=== PATIENT | female | born 1970 | race Caucasian/White ===

== ENCOUNTER 2016-11-14 11:02 | Emergency (ER) | payer MEDICARE, MEDICAID ==
[~2016-11-14] VITALS: Ht 162.6 cm; Wt 190.5 kg
[~2016-11-14 11:02] MED LIST: AGGRENOX (D1 CAPSULE PO; ALESSE PO; AMLO5TAB PO; ASPIRIN 81MG TA81 MG PO; ASPIRIN CHILDRE81 MG PO; ATORVASTATIN CA20 M1 PO; B COMPLEX1 TA3 PO; BACTROBAN2% TP; CITALOPRAM10 MG PO; CITALOPRAM40 MG PO; CLARITIN 10MG T10 MG PO; CLARITIN REDITA10 MG PO; CLOPIDOGREL75 M2 PO; CYCLOBENZ5 MG PO; CYCLOBENZAPRINE10 M1 PO; DICLOFENAC 50MG50 MG PO; FLEXERIL10 MG PO; FLONASE 50 MCG16 GM; FUROSEMIDE 20MG20 MG FT; GABAPENTIN300 MG PO; HYDROCHLOROTHIA25 M1 PO; INDERAL 80MG. T80 MG PO; JANUVIA100 MG PO; KEFLEX 500MG.500 MG PO; LANTUS INS100 UNITS/ SC; LASIX20 MG PO; LEVOTHYROXIN0.025 M1 PO; LISINOPRIL 10MG10 MG PO; LISINOPRIL 20MG20 MG PO; LORTAB 5/500 501 TAB PO; LORTAB 500 MG-71 TAB PO; METFORMIN1000 MG PO; MINOCIN100 MG PO; MONTELUKAST SOD10 MG PO; NAPROSYN 375MG375 MG PO; NEURONTIN 100100 MG PO; NEURONTIN400 MG PO; NOVOLIN 70/30 710 ML SC; NOVOLOG MIX 70/10 ML SC; OMEPRAZOLE40 MG PO; PRAVASTATIN 40M40 MG PO; PRILOSEC40 MG PO; PROAIR HFA0.09 MG/AC IH; PROVERA10 MG OR; SEPTRA DS 800 M1 TAB PO; SIMVASTATIN40 MG PO; SYMBICORT1 AE1 IH; TRAMADOL 50MG T50 M1 PO; TYLENOL W/CODEI1 TA2 PO; ULTRAM 50 MG TA50 MG PO; VISTARIL25 MG PO; WARFARIN SODIUM10 M1 PO
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
[2016-11-14 12:08] VITALS: BP 158/86
[2017-02-13] MEDS ORDERED: MOTRIN 400MG.400 MG PO (18:44)
== END 2016-11-14 12:08 | disposition home or self-care (01) ==
LOC: ER 11:02
DX: S63.501A Unspecified sprain of right wrist, initial encounter (principal); W19.XXXA Unspecified fall, initial encounter; Y92.009 Unspecified place in unspecified non-institutional (private) residence as the place of occurrence of the external cause; E11.9 Type 2 diabetes mellitus without complications; Z79.4 Long term (current) use of insulin; I10 Essential (primary) hypertension

== ENCOUNTER 2017-02-26 14:51 | Outpatient (CLI) | payer MEDICARE, MEDICAID ==
[~2017-02-26 14:51] MED LIST changes: +MOTRIN 400MG.400 MG PO
== END 2017-02-26 16:21 ==
LOC: LAB 14:51 → ACC 14:51
DX: I26.99 Other pulmonary embolism without acute cor pulmonale (principal); Z79.01 Long term (current) use of anticoagulants; Z51.81 Encounter for therapeutic drug level monitoring
CPT/HCPCS: G0463

== ENCOUNTER 2017-06-29 13:01 | Outpatient (CLI) | payer MEDICARE, MEDICAID ==
[~2017-06-29 13:01] MED LIST changes: +B COMPLEX1 EACH PO; +MULTI-DAY VITA1 EACH PO; +NATURE'S BLEND500 MG PO; +PROTONIX 40MG T40 MG PO; +RELION NOVOL100 U/M1 IJ; +TOUJEO300 U/ML SC; +VITAMIN C500 M1 PO; +VITAMIN D400 I1 PO
== END 2017-06-29 13:43 ==
LOC: ACC 13:01
DX: I26.99 Other pulmonary embolism without acute cor pulmonale (principal); Z79.01 Long term (current) use of anticoagulants; Z51.81 Encounter for therapeutic drug level monitoring
CPT/HCPCS: G0463

== ENCOUNTER 2017-08-12 21:32 | Emergency (ER) | payer MEDICARE, MEDICAID ==
[~2017-08-12] VITALS: Ht 162.6 cm; Wt 158.8 kg
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
[2017-08-12 22:40] VITALS: BP 118/70
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
--- OUTSIDE RECORDS SUMMARY | 2017-08-23 01:42 | External Medical Summary Rpt | CCD ---
Author Author , FELIPE WANG Address Unknown Phone [email or web address] Providers Care Sole Rounder Name Role Phone Katty Rodríguez MD, Unavailable Unavailable Katty Jackson MD, Unavailable Unavailable Neil Jackson MD Purpose Continuity of Care Document - 10-08-2013 through 2016 Problems Code Diagnosis DOS Provider Status 356.9 356.9 IDIO 12-03-2013 [facility] NEURPTHY Hospital NOS 704.8 704.8 HAIR 12-03-2013 [place] DISEASES [facility] 250.03 250.03 DIAB 11-28-2013 [facility], TYPE Hospital I [JUVENILE TYPE], UNCONTROLLE D 346.90 346.90 11-28-2013 [place] MIGRAINE [facility] UNSPECIFIED Hospital W/O INTRACT MGRN W/O STATUS MIGRAINOSUS 401.9 401.9 11-28-2013 [place] HYPERTENSIO [facility] N [facility] 413.9 413.9 11-28-2013 [place] ANGINA [facility] PECTORIS Hospital NEC/NOS V14.8 V14.8 11-28-2013 [place] HX-DRUG [facility] ALLERGY [facility] 693.0 693.0 DRUG 10-08-2013 [place] DERMATITIS [facility] E849.0 E849.0 10-08-2013 [place] ACCIDENT IN [facility] E931.9 E931.9 ADV 10-08-2013 [place] EFF [facility] ANTINT [facility] NEC/NOS Allergies, Adverse Reactions, Alerts Type Drug Allergy Adverse Reaction to Substance Substance Reaction Severity Trimethoprim I-ITCHING Unknown Sulfamethoxazole I-ITCHING Unknown Norgestrel Unknown Unknown Ethinyl Estradiol I-RASH Unknown Medications Na ND Rx Da Fi Fi Am Da Di Ph RX Ph St me C No te ll ll ou ys ag ar # ys at rm s nt no ma ic us Or Da si cy ia de te s n re d CE 62 01 0 No PH 75 -2 AL 60 2- Lo EX 29 20 ng IN 48 14 er 8 50 Ac 0 ti MG ve CA PS UL E SO 00 01 0 No DI 40 -1 UM 97 7- Lo 98 20 ng CH 30 14 er LO 9 RI Ac DE ti ve 0. 9% SO NIKUNJ TI ON Sa 63 01 0 No li 80 -1 ne 70 7- Lo 10 20 ng Fl 07 14 er us 5 h Ac 10 ti ML ve Sy ri ng e KE 00 01 0 No TO 40 -1 RO 93 7- Lo LA 79 20 ng C 50 14 er 30 1 Ac MG ti /M ve L AL De 00 01 0 No xa 51 -1 me 74 7- Lo th 90 20 ng as 12 14 er on 5 e Ac 4M ti G/ ve Ml Sd v DI 00 01 0 No PH 40 -1 EN 92 7- Lo HY [address] 03 14 er AM 1 IN Ac E ti 50 ve MG /M L SY RN G ME 00 01 0 No TO 40 -1 CL 93 7- Lo OP 41 20 ng RA 40 14 er AL 1 DE Ac ti 10 ve MG /2 ML AL Sa 63 01 0 No li 80 -1 ne 70 7- Lo 10 20 ng Fl 07 14 er us 5 h Ac 10 ti ML ve Sy ri ng e HY [address] 51 -2 OX 75 7- Lo YZ 60 20 ng IN 12 13 er E 5 50 Ac ti MG ve /M L AL De 00 11 0 No xa 51 -2 me 74 7- Lo th 90 20 ng as 12 13 er on 5 e Ac 4M ti G/ ve Ml Sd v Vital Signs 12-03-2013 20:38 Name Value Interpretat Reference Comment ion Range BP 75 mm[Hg] Diastolic BP Systolic 135 mm[Hg] Heart 105 /min Rate/Pulse O2% 96 % Respiratory 20 /min Rate 12-03-2013 19:33 Name Value Interpretat Reference Comment ion Range BP 63 mm[Hg] Diastolic BP Systolic 113 mm[Hg] Heart 107 /min Rate/Pulse O2% 99 % Respiratory 20 /min Rate 11-28-2013 23:13 Name Value Interpretat Reference Comment ion Range BP 80 mm[Hg] Diastolic BP Systolic 120 mm[Hg] Heart 85 /min Rate/Pulse O2% 100 % Respiratory 20 /min Rate 11-28-2013 21:01 Name Value Interpretat Reference Comment ion Range BP 84 mm[Hg] Diastolic BP Systolic 135 mm[Hg] Heart 99 /min Rate/Pulse O2% 100 % Respiratory 20 /min Rate 10-08-2013 06:46 Name Value Interpretat Reference Comment ion Range Body 98.0 [degF] Temperature BP 57 mm[Hg] Diastolic BP Systolic 115 mm[Hg] Heart 102 /min Rate/Pulse O2% 97 % Respiratory 18 /min Rate 10-08-2013 05:54 Name Value Interpretat Reference Comment ion Range BP 78 mm[Hg] Diastolic BP Systolic 146 mm[Hg] Heart 74 /min Rate/Pulse O2% 96 % Respiratory 20 /min Rate Results Labs Lab Lab Date Result Refere Interp Status Commen Order Detail nces retati t Range on Hemoglobin A1c in Blood (05-04-2017 11:27) Hemoglo 8.1 % 0.0% High complet bin A1c 017 - ed in 11:27 7.0% Blood Bas Metab 1999 Pnl SerPl (11-10-2016 16:47) Comment: Meter: [id number] Top Lift Cutter: [id number] Cresencio Yates Glucose 263 70-130 complet BldC 016 mg/dL ed Glucomt 16:47 r-mCnc Bas Metab 1999 Pnl SerPl (11-10-2016 11:38) Comment: Meter: [id number] Top Lift Cutter: [id number] Gee Brink Glucose 267 70-130 complet BldC 016 mg/dL ed Glucomt 11:38 r-mCnc Bas Metab 1999 Pnl SerPl (11-10-2016 07:15) Comment: Meter: [id number] Top Lift Cutter: [id number] Gee Brink Glucose 268 70-130 complet BldC 016 mg/dL ed Glucomt 07:15 r-mCnc Bas Metab 1999 Pnl SerPl (11-10-2016 05:46) Comment: Meter: [id number] Top Lift Cutter: [id number] Jose Luis Loaiza Glucose 300 70-130 complet BldC 016 mg/dL ed Glucomt 05:46 r-mCnc CBC W Diff pnl,unspecified Bld (11-10-2016 03:48) Basophi 0.01 0.00-0. complet ls # 016 10*3/mm 20 ed Bld 03:48 3 Auto Eosinop 12-30-2 0.00 0.10-0. complet hil # 016 10*3/mm 30 ed Bld 03:48 3 Auto Monocyt 12-30-2 0.55 0.00-1. complet es # 016 10*3/mm 00 ed Bld 03:48 3 Auto Lymphoc 12-30-2 1.23 0.60-4. complet ytes # 016 10*3/mm 80 ed Bld 03:48 3 Auto Neutrop 12-30-2 13.97 1.50-8. complet hils # 016 10*3/mm 30 ed Bld 03:48 3 Auto Imm 12-30-2 1.4 % 0.0-0.6 complet Granulo 016 ed cytes 03:48 NFr Bld Basophi 12-30-2 0.1 % 0.0-1.0 complet ls NFr 016 ed Bld 03:48 Auto Eosinop 12-30-2 0.0 % 0.0-3.0 complet hil NFr 016 ed Bld 03:48 Auto Monocyt 12-30-2 3.4 % 0.0-12. complet es NFr 016 0 ed Bld 03:48 Auto Lymphoc 12-30-2 7.7 % 24.0-44 complet ytes 016 .0 ed NFr Bld 03:48 Auto Neutrop 12-30-2 87.4 % 41.0-71 complet hils 016 .0 ed NFr Bld 03:48 Auto Platele 12-30-2 270 150-450 complet t # Bld 016 10*3/mm ed Auto 03:48 3 PMV Bld 12-30-2 9.4 fL 6.0-12. complet Auto 016 0 ed 03:48 RDW RBC 12-30-2 53.4 fl 37.0-54 complet Auto 016 .0 ed 03:48 RDW RBC 12-30-2 17.6 % 11.3-14 complet 016 .5 ed Auto-Rt 03:48 o MCHC 12-30-2 31.9 32.0-36 complet RBC 016 g/dL .0 ed Auto-mC 03:48 nc MCH RBC 12-30-2 26.5 pg 27.0-31 complet Qn 016 .0 ed Auto 03:48 MCV RBC 30-2 83.2 fL 80.0-99 complet Auto 016 .0 ed 03:48 Hct VFr 30-2 35.1 % 34.5-44 complet Bld 016 .0 ed Auto 03:48 Hgb -30-2 11.2 11.5-15 complet Bld-mCn 016 g/dL .5 ed c 03:48 RBC # 12-30-2 4.22 3.89-5. complet Bld 016 10*6/mm 14 ed Auto 03:48 3 WBC 12-30-2 15.98 3.50-10 complet nRBC 016 10*3/mm .80 ed cor # 03:48 3 Bld Imm 30-2 0.22 0.00-0. complet Granulo 016 10*3/mm 03 ed cytes # 03:48 3 Bld Comp Metab 1998 Pnl SerPl (11-10-2016 03:48) Comment: [employer] Guidelines Comment: Comment: Stage Description GFR Comment: 1 Normal or High 90+ Comment: 2 Mild decrease 60-89 Comment: 3 Moderate decrease 30-59 Comment: 4 Severe decrease 15-29 Comment: 5 Kidney failure <15 Anion 11-10-2 6.0 3.0-11. complet Gap3 016 mmol/L 0 ed SerPl-s 03:48 Cnc BUN/Cre 11-10-2 34.0 7.0-25. complet at 016 0 ed SerPl 03:48 Albumin 11-10-2 1.5 1.5-2.5 complet /Glob 016 g/dL ed SerPl 03:48 Globuli 11-10-2 2.4 complet n Ur 016 gm/dL ed Elph-mC 03:48 nc GFR/BSA 11-10-2 37 >60 complet .pred 016 mL/min/ ed SerPl 03:48 1.73 MDRD-Ar VRat Bilirub 11-10-2 0.3 0.3-1.2 complet 016 mg/dL ed SerPl-m 03:48 Cnc ALP 11-10-2 193 U/L 25-100 complet SerPl-c 016 ed Cnc 03:48 AST 11-10- 33 U/L 0-33 complet SerPl-c 016 ed Cnc 03:48 ALT 11-10-2 38 U/L 7-40 complet SerPl w 016 ed 03:48 P-5'-P- cCnc Albumin 3.70 3.20-4. complet 016 g/dL 80 ed SerPl-m 03:48 Cnc Prot 6.1 5.7-8.2 complet SerPl-m 016 g/dL ed Cnc 03:48 Calcium 8.7 8.7-10. complet 016 mg/dL 4 ed XXX-sCn 03:48 c CO2 22.0 20.0-31 complet SerPl-s 016 mmol/L .0 ed Cnc 03:48 Chlorid 105 99-109 complet e 016 mmol/L ed SerPl-s 03:48 Cnc Potassi 5.3 3.5-5.5 complet um 016 mmol/L ed Bld-sCn 03:48 c Sodium 133 132-146 complet Bld-sCn 016 mmol/L ed c 03:48 Creat 1.50 0.60-1. complet Bld-mCn 016 mg/dL 30 ed c 03:48 BUN 51 9-23 complet Bld-mCn 016 mg/dL ed c 03:48 Glucose 279 70-100 complet 016 mg/dL ed Bld-mCn 03:48 c Iron SerPl-mCnc (11-10-2016 03:48) Iron 32 50-175 complet 24h 016 mcg/dL ed Ur-mRat 03:48 e COMPREHENSIVE METABOLIC PANEL (11-28-2013 19:45) Glucose 328 74-106 complet 014 mg/dL ed Bld-mCn 19:45 c BUN 19 7-18 complet Bld-mCn 014 mg/dL ed c 19:45 Creat 1.7 0.6-1.0 complet SerPl-m 014 mg/dL ed Cnc 19:45 GFR/BSA 33 59- complet .pred 014 ML/MIN ed SerPl 19:45 Schwart z-vRate Sodium 135 136-145 complet SerPl-s 014 mmoL/L ed Cnc 19:45 Potassi 4.5 3.5-5.1 complet um 014 mmoL/L ed SerPl-s 19:45 Cnc Chlorid 100 98-107 complet e 014 mmoL/L ed SerPl-s 19:45 Cnc CO2 23 21.0-32 complet SerPl-s 014 mmoL/L .0 ed Cnc 19:45 Calcium 9.1 8.5-10. complet 014 mg/dL 1 ed SerPl-m 19:45 Cnc Prot 7.5 6.4-8.2 complet SerPl-m 014 gm/dL ed Cnc 19:45 Albumin 3.5 3.4-5.0 complet 014 gm/dL ed SerPl-m 19:45 Cnc Globuli 4.0 1.3-3.2 complet n 014 gm/dL ed Ser-mCn 19:45 c Albumin 0.9 UNK 1.1-1.8 complet /Glob 014 ed SerPl-m 19:45 Rto Bilirub 0.2 0.2-1.0 complet 014 mg/dL ed SerPl-m 19:45 Cnc AST 14 U/L 15-37 complet SerPl-c 014 ed Cnc 19:45 ALT 26 U/L 12-78 complet SerPl-c 014 ed Cnc 19:45 ALP 163 U/L 50-136 complet SerPl-c 014 ed Cnc 19:45 CBC with AUTO DIFF (11-28-2013 19:45) WBC # 11-28- 17.1 4.8-10. complet Bld 014 K/MM3 8 ed Auto 19:45 RBC # 11-28- 5.02 4.2-5.4 complet Bld 014 M/mm3 ed Auto 19:45 Hgb 13.7 12.2-16 complet Bld-mCn 014 g/dL .2 ed c 19:45 Hct Fr 42.5 % 37.0-47 complet Bld 014 .0 ed 19:45 MCV RBC 84.6 fl 82.2-97 complet 014 .8 ed 19:45 MCH RBC 27.3 pg 27-31.2 complet Qn 014 ed Auto 19:45 MEAN 32.3 31.8-35 complet CORPUSC 014 g/dl .4 ed ULAR 19:45 HGB CONC RDW RBC 15.8 % 11.5-17 complet Auto 014 .5 ed 19:45 Platele 364 142-424 complet t Bld 014 K/mm3 ed Ql 19:45 Manual MEAN 7.5 fl 7.4-10. complet PLATELE 014 4 ed T 19:45 VOLUME Granulo 74.2 % 37.0-80 complet cytes 014 .0 ed Fr Bld 19:45 Auto LYMPH % 19.2 % 10-50.0 complet 014 ed 19:45 Monocyt 2.9 % 1.7-9.3 complet es Fr 014 ed Bld 19:45 Auto Eosinop 3.2 % 0.1-12. complet hil Fr 014 0 ed Bld 19:45 Auto Basophi 0.4 % 0.1-2.0 complet ls Fr 014 ed Bld 19:45 Auto Granulo 12.7 1.8-7.8 complet cytes # 014 K/mm3 ed Bld 19:45 Auto Lymphoc 11-28- 3.3 0.7-4.5 complet ytes Fr 014 K/mm3 ed Bld 19:45 Auto Monocyt 0.5 0.1-1.0 complet es # 014 K/mm3 ed Bld 19:45 Auto Eosinop 11-28- 0.6 0.0-0.4 complet hil # 014 K/mm3 ed Bld 19:45 Auto Basophi 11-28-2 0.1 0-0.2 complet ls # 014 K/MM3 ed Bld 19:45 Auto Encounters Encounter Start End Date Code Location Performer Type Date Emergency ZENIA Jackson MD (ER) 4 19:19 4 20:38 [facility] Emergency ZENIA Rodríguez MD (ER) 4 20:12 4 23:15 [facility] Emergency ZENIA Jackson MD (ER) 3 05:30 3 06:49 [facility]
--- OUTSIDE RECORDS SUMMARY | 2017-08-23 01:42 | External Medical Summary Rpt | CCD ---
Author Author , FELIPE WANG Address Unknown Phone [email or web address] Care Team Providers Care Supervisor Paper Products Name Role Phone Katty Rodríguez MD, Unavailable Unavailable Katty Jackson MD, Unavailable Unavailable Neil Jackson MD Purpose Continuity of Care Document - 10-08-2013 through 2016 Problems Code Diagnosis DOS Provider Status 356.9 356.9 IDIO 12-03-2013 [facility] NEURPTHY Hospital NOS 704.8 704.8 HAIR 12-03-2013 [place] DISEASES [facility] 250.03 250.03 DIAB 11-28-2013 [facility], TYPE Hospital I [JUVENILE TYPE], UNCONTROLLE D 346.90 346.90 11-28-2013 [place] MIGRAINE [facility] UNSPECIFIED Hospital W/O INTRACT MGRN W/O STATUS MIGRAINOSUS 401.9 401.9 11-28-2013 [place] HYPERTENSIO [facility] N [facility] 413.9 413.9 11-28-2013 [place] ANGINA [facility] PECTORIS Hospital NEC/NOS V14.8 V14.8 11-28-2013 [place] HX-DRUG [facility] ALLERGY [facility] 693.0 693.0 DRUG 10-08-2013 [place] DERMATITIS [facility] E849.0 E849.0 10-08-2013 [place] ACCIDENT IN [facility] E931.9 E931.9 ADV 10-08-2013 [place] EFF [facility] ANTINT [facility] NEC/NOS Allergies, Adverse Reactions, Alerts Type Drug [...] 41 20 ng RA 40 14 er ME 1 DE Ac ti 10 ve MG [...] 1999 Pnl SerPl (11-10-2016 16:47) Comment: Meter: [id number] Hand Molder Meat: [id number] Cresencio Yates Glucose 263 70-130 complet BldC 016 mg/dL ed Glucomt 16:47 r-mCnc Bas Metab 1999 Pnl SerPl (11-10-2016 11:38) Comment: Meter: [id number] Hand Molder Meat: [id number] Gee Brink Glucose 267 70-130 complet BldC 016 mg/dL ed Glucomt 11:38 r-mCnc Bas Metab 1999 Pnl SerPl (11-10-2016 07:15) Comment: Meter: [id number] Hand Molder Meat: [id number] Gee Brink Glucose 268 70-130 complet BldC 016 mg/dL ed Glucomt 07:15 r-mCnc Bas Metab 1999 Pnl SerPl (11-10-2016 05:46) Comment: Meter: [id number] Hand Molder Meat: [id number] Jose Luis Loaiza Glucose 300 70-130 complet [...] Jackson MD (ER) 4 19:19 4 20:38 [facility] Emergency ZENIA Rodríguez MD (ER) 4 20:12 4 23:15 [facility] Emergency ZENIA Jackson MD (ER) 3 05:30 3 06:49 [facility]
--- OUTSIDE RECORDS SUMMARY | 2017-08-23 01:43 | External Medical Summary Rpt | CCD ---
Author Author , FELIPE WANG Address Unknown Phone [email or web address] Immunization Name Date Rout CVX Reac Dose Comm Prov Is Faci e tion ent ider Refu lity Give sed n PPV2 08-1 33 0.5 Hist [facility] No [facility] 3 3-20 mL oric 1 1 14 al Info rmat ion - Sour ce Unsp ecif ied
--- OUTSIDE RECORDS SUMMARY | 2017-08-23 01:43 | External Medical Summary Rpt | CCD ---
Author Author , FELIPE WANG Address Unknown Phone [email or web address] Immunization Name Date Rout CVX Reac Dose Comm Prov Is Faci e tion ent ider Refu lity Give sed n PPV2 08-1 33 0.5 Hist [facility] No [facility] 3 3-20 mL oric 1 1 14 al Info rmat ion - Sour ce Unsp ecif ied
--- OUTSIDE RECORDS SUMMARY | 2017-08-23 01:44 | External Medical Summary Rpt ---
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 Y LIST ANTICOAGULANTS: ASPIRIN COUMADIN PTT RESULTS MUST BE CALLED IF PT ON HEPARIN!!! Y INR in 0.9 - 1.1 No Normal INDICATIO Aug 6 Blood by informati N 2016 8:38 Coagulati on in AM on assay source INR data RANGETHER APY FOR DVT, PE, ATRIAL FIB; 2.0 - 3.0PROPHY LAXIS FOR VTETHERAP Y FOR MECHANICA L HEART 2.5 - 3.5VALVE; PREVENTIO N OF SYSTEMICE MBOLISM SECONDARY TO AMI Prothromb 9.4 - SECONDS Normal No Aug 6 in time 11.8 informati 2016 8:38 (PT) in on in AM Platelet source poor data plasma by Coagulati on assay Glucose [Mass/volume] in Capillary blood by Glucometer Observa Value Referen Units Interpr Notes Date tion ce etation Range Glucose 70 - 110 mg/dl High No Aug 6 [Mass/vol informati 2016 8:06 ume] in on in AM Capillary source blood by data Glucomete r Comprehensive metabolic 2000 panel in Serum or Plasma Observa Value Referen Units Interpr Notes Date tion ce etation Range Albumin/G 1.1 - 1.8 No Normal No Oct 3 lobulin informati informati 2016 [Mass on in on in 11:36 AM ratio] in source source Serum or data data Plasma Albumin 3.4 - 5.0 gm/dL Normal No Aug 3 [Mass/vol informati 2016 ume] in on in 11:36 AM Serum or source Plasma data Alkaline 46 - 116 U/L High No Oct 3 phosphata informati 2017 se on in 11:36 AM [Enzymati source c data activity/ volume] in Serum or Plasma Bilirubin 0.2 - 1.0 mg/dL Normal No Oct 3 .total informati 2017 [Mass/vol on in 11:36 AM ume] in source Serum or data Plasma Urea 7 - 18 mg/dL High No Oct 3 nitrogen informati 2017 [Mass/vol on in 11:36 AM ume] in source Serum or data Plasma Calcium 8.5 - mg/dL Normal No Oct 3 [Mass/vol 10.1 informati 2017 ume] in on in 11:36 AM Serum or source Plasma data Chloride 98 - 107 mmoL/L Low No Oct 3 [Moles/vo informati 2017 lume] in on in 11:36 AM Serum or source Plasma data Carbon 21.0 - mmoL/L Normal No Oct 3 dioxide, 32.0 informati 2017 total on in 11:36 AM [Moles/vo source lume] in data Serum or Plasma Creatinin 0.55 - mg/dL High No Oct 3 e 1.02 informati 2017 [Mass/vol on in 11:36 AM ume] in source Serum or data Plasma Estimated 59- ML/MIN Low REFERENCE Oct 3 RANGE: 2017 glomerula >60 11:36 AM r ML/MIN/1. filtratio 73 SQUARE n rate METERSIf (GF this patient is -A merican, then multiply theresult by 1.210. Globulin 1.3 - 3.2 gm/dL High No Oct 3 [Mass/vol informati 2017 ume] in on in 11:36 AM Serum source data Glucose 74 - 106 mg/dL High No Oct 3 [Mass/vol informati 2017 ume] in on in 11:36 AM Serum or source Plasma data Potassium 3.5 - 5.1 mmoL/L Normal No Oct 3 informati 2017 [Moles/vo on in 11:36 AM lume] in source Serum or data Plasma Sodium 136 - 145 mmoL/L Normal No Oct 3 [Moles/vo informati 2017 lume] in on in 11:36 AM Serum or source Plasma data Aspartate 15 - 37 U/L Normal No Oct 3 informati 2017 aminotran on in 11:36 AM sferase source [Enzymati data c activity/ volume] in Serum or Plasma Alanine 12 - 78 U/L Normal No Oct 3 aminotran informati 2017 sferase on in 11:36 AM [Enzymati source c data activity/ volume] in Serum or Plasma Protein 6.4 - 8.2 gm/dL Normal No Oct 3 [Mass/vol inform2016 ume] in on in 11:36 AM Serum or source Plasma data INR in Blood by Coagulation assay Observa Value Referen Units Interpr Notes Date tion ce etation Range INR in 0.9 - 1.1 No High INDICATIO Aug 14 Blood by informati N 2017 Coagulati on in 11:36 AM on assay source INR data RANGETHER APY FOR DVT, PE, ATRIAL FIB; 2.0 - 3.0PROPHY LAXIS FOR VTETHERAP Y FOR MECHANICA L HEART 2.5 - 3.5VALVE; PREVENTIO N OF SYSTEMICE MBOLISM SECONDARY TO AMI Prothromb 9.4 - SECONDS High No Aug 14 in time 11.8 inform2016 (PT) in on in 11:36 AM Platelet source poor data plasma by Coagulati on assay CBC W Auto Differential panel in Blood Observa Value Referen Units Interpr Notes Date tion ce etation Range Basophils 0 - 0.2 K/MM3 Normal No Aug 142016 [#/volume on in 11:36 AM ] in source Blood by data Automated count Basophils 0.1 - 2.0 % Normal No Aug 14 /2016 leukocyte on in 11:36 AM s in source Blood by data Automated count Eosinophi 0.0 - 0.4 K/mm3 High No Aug 14 ls 2016 [#/volume on in 11:36 AM ] in source Blood by data Automated count Eosinophi 0.1 - % Normal No Aug 14 ls/100 12.0 2016 leukocyte on in 11:36 AM s in source Blood by data Automated count Granulocy 1.8 - 7.8 K/mm3 High No Aug 14 ugo inform2016 [#/volume on in 11:36 AM ] in source Blood by data Automated count Granulocy 37.0 - % Normal No Aug 14 ugo/100 80.0 2016 leukocyte on in 11:36 AM s in source Blood by data Automated count Hematocri 37.0 - % Normal No Aug 14 t [Volume 47.0 2016 on in 11:36 AM Fraction] source of Blood data Hemoglobi 12.2 - g/dL No No Aug 14 n 16.2 informati informati 2016 [Mass/vol on in on in 11:36 AM ume] in source source Blood data data Lymphocyt 0.7 - 4.5 K/mm3 Normal No Aug 14 es 2016 [#/volume on in 11:36 AM ] in source Unspecifi data ed specimen by Automated count Lymphocyt 10 - 50.0 % Normal No Aug 14 es 2016 [#/volume on in 11:36 AM ] in source Unspecifi data ed specimen by Automated count Erythrocy 27 - 31.2 pg Normal No Aug 14 te mean 2016 corpuscul on in 11:36 AM ar source hemoglobi data n [Entitic mass] Erythrocy 31.8 - g/dl Normal No Aug 14 te mean 35.4 2016 corpuscul on in 11:36 AM ar source hemoglobi data n concentra tion [Mass/vol ume] by Automated count Erythrocy 82.2 - fl Normal No Aug 14 te mean 97.8 2016 corpuscul on in 11:36 AM ar volume source [Entitic data volume] by Automated count Monocytes 0.1 - 1.0 K/mm3 Normal No Aug 142016 [#/volume on in 11:36 AM ] in source Blood by data Automated count Monocytes 1.7 - 9.3 % Normal No Aug 14 /100 2016 leukocyte on in 11:36 AM s in source Blood by data Automated count Platelets 142 - 424 K/mm3 Normal No Aug 142016 [#/volume on in 11:36 AM ] in source Blood data Erythrocy 4.2 - 5.4 M/mm3 Normal No Aug 14 ugo 2016 [#/volume on in 11:36 AM ] in source Amniotic data fluid Erythrocy 11.5 - % Normal No Aug 14 te 17.5 2016 distribut on in 11:36 AM ion width source [Entitic data volume] by Automated count Leukocyte 4.8 - K/MM3 High No Aug 14 s 10.8 inform2016 [#/volume on in 11:36 AM ] in source Blood data INR in Blood by Coagulation assay Observa Value Referen Units Interpr Notes Date tion ce etation Range IS PATIENT ON ANTICOAGULANTS? Y LIST ANTICOAGULANTS: COUMADIN INR in 0.9 - 1.1 No High INDICATIO Aug 12 Blood by informati N 2016 9:56 Coagulati on in PM on assay source INR data RANGETHER APY FOR DVT, PE, ATRIAL FIB; 2.0 - 3.0PROPHY LAXIS FOR VTETHERAP Y FOR MECHANICA L HEART 2.5 - 3.5VALVE; PREVENTIO N OF SYSTEMICE MBOLISM SECONDARY TO AMI Prothromb 9.4 - SECONDS High No Oct 1 in time 11.8 informati 2017 9:56 (PT) in on in PM Platelet source poor data plasma by Coagulati on assay INR in Blood by Coagulation assay Observa Value Referen Units Interpr Notes Date tion ce etation Range INR in 0.9 - 1.1 No High Results Sep 13 Blood by informati sent to: 2017 3:00 Coagulati on in [place] PM on assay source Cody RHODES data n 07/27/17 [id number] Derrell mendenhall mmy Pharmacis t recommend ation for Warfarint herapy is: PATIENT INR 3.2 TODAY VIA FINGERSTI CK. PATIENTIN DICATED SHE HAD NOT BEEN EATING ANY GREEN VEGETABLE S OVERTHE LAST SEVERAL WEEKS. HAVING PATIENT TAKE 1/2 TABLETTOD AY, THEN RESUME 10 MG DAILY THEREAFTE R. ENCOURAGE DPATIENT TO CONSUME SOME VEGETABLE S.FOR DETAILED INFORMATI ON-PLEASE REVIEW PROGRESS NOTEI N THE ASSESSMEN TS AND ANTICOAGU LATION CLINIC SECTIONAN TICOAGULA TION CLINIC IN PCI/CLINI DUSTIN REVIEWIND ICATION INR RANGETHER APY FOR DVT, PE, ATRIAL FIB; 2.0 - 3.0PROPHY LAXIS FOR VTETHERAP Y FOR MECHANICA L HEART 2.5 - 3.5VALVE; PREVENTIO N OF SYSTEMICE MBOLISM SECONDARY TO AMI Comprehensive metabolic 2000 panel in Serum or Plasma Observa Value Referen Units Interpr Notes Date tion ce etation Range Albumin/G 1.1 - 1.8 No Low No Sep 2 lobulin informati informati 2017 2:37 [Mass on in on in AM ratio] in source source Serum or data data Plasma Albumin 3.4 - 5.0 gm/dL Low No Sep 2 [Mass/vol informati 2017 2:37 ume] in on in AM Serum or source Plasma data Alkaline 46 - 116 U/L High No Sep 2 phosphata informati 2017 2:37 se on in AM [Enzymati source c data activity/ volume] in Serum or Plasma Bilirubin 0.2 - 1.0 mg/dL Normal No Sep 2 .total informati 2017 2:37 [Mass/vol on in AM ume] in source Serum or data Plasma Urea 7 - 18 mg/dL High No Sep 2 nitrogen informati 2017 2:37 [Mass/vol on in AM ume] in source Serum or data Plasma Calcium 8.5 - mg/dL Normal No Sep 2 [Mass/vol 10.1 informati 2017 2:37 ume] in on in AM Serum or source Plasma data Chloride 98 - 107 mmoL/L Normal No Sep 2 [Moles/vo informati 2017 2:37 lume] in on in AM Serum or source Plasma data Carbon 21.0 - mmoL/L Normal No Sep 2 dioxide, 32.0 informati 2017 2:37 total on in AM [Moles/vo source lume] in data Serum or Plasma Creatinin 0.55 - mg/dL High No Sep 2 e 1.02 informati 2017 2:37 [Mass/vol on in AM ume] in source Serum or data Plasma Creatinin 50 - 200 ML/MIN Normal No Sep 2 e renal informati 2017 2:37 clearance on in AM source predicted data by Cockcroft -Gault formula Estimated 59- ML/MIN Low REFERENCE Sep 2 RANGE: 2017 2:37 glomerula >60 AM r ML/MIN/1. filtratio 73 SQUARE n rate METERSIf (GF this patient is -A merican, then multiply theresult by 1.210. Globulin 1.3 - 3.2 gm/dL High No Sep 2 [Mass/vol informati 2017 2:37 ume] in on in AM Serum source data Glucose 74 - 106 mg/dL High No Sep 2 [Mass/vol informati 2017 2:37 ume] in on in AM Serum or source Plasma data Potassium 3.5 - 5.1 mmoL/L Normal No Sep 2 informati 2017 2:37 [Moles/vo on in AM lume] in source Serum or data Plasma Sodium 136 - 145 mmoL/L Normal No Sep 2 [Moles/vo informati 2017 2:37 lume] in on in AM Serum or source Plasma data Aspartate 15 - 37 U/L Normal No Sep 2 informati 2017 2:37 aminotran on in AM sferase source [Enzymati data c activity/ volume] in Serum or Plasma Alanine 12 - 78 U/L Normal No Sep 2 aminotran informati 2017 2:37 sferase on in AM [Enzymati source c data activity/ volume] in Serum or Plasma Protein 6.4 - 8.2 gm/dL Normal No Sep 2 [Mass/vol informati 2017 2:37 ume] in on in AM Serum or source Plasma data INR in Blood by Coagulation assay Observa Value Referen Units Interpr Notes Date tion ce etation Range IS PATIENT ON ANTICOAGULANTS? Y INR in 0.9 - 1.1 No High INDICATIO Sep 2 Blood by informati N 2016 2:37 Coagulati on in AM on assay source INR data RANGETHER APY FOR DVT, PE, ATRIAL FIB; 2.0 - 3.0PROPHY LAXIS FOR VTETHERAP Y FOR MECHANICA L HEART 2.5 - 3.5VALVE; PREVENTIO N OF SYSTEMICE MBOLISM SECONDARY TO AMI Prothromb 9.4 - SECONDS High No Sep 2 in time 11.8 informati 2016 2:37 (PT) in on in AM Platelet source poor data plasma by Coagulati on assay CBC W Auto Differential panel in Blood Observa Value Referen Units Interpr Notes Date tion ce etation Range Basophils 0 - 0.2 K/MM3 Normal No Sep 2 informati 2017 2:37 [#/volume on in AM ] in source Blood by data Automated count Basophils 0.1 - 2.0 % Normal No Sep 2 /100 informati 2017 2:37 leukocyte on in AM s in source Blood by data Automated count Eosinophi 0.0 - 0.4 K/mm3 High No Sep 2 ls informati 2016 2:37 [#/volume on in AM ] in source Blood by data Automated count Eosinophi 0.1 - % Normal No Sep 2 ls/100 12.0 informati 2016 2:37 leukocyte on in AM s in source Blood by data Automated count Granulocy 1.8 - 7.8 K/mm3 High No Sep 2 ugo informati 2016 2:37 [#/volume on in AM ] in source Blood by data Automated count Granulocy 37.0 - % Normal No Sep 2 ugo/100 80.0 informati 2016 2:37 leukocyte on in AM s in source Blood by data Automated count Hematocri 37.0 - % Normal No Sep 2 t [Volume 47.0 informati 2017 2:37 on in AM Fraction] source of Blood data Hemoglobi 12.2 - g/dL Normal No Sep 2 n 16.2 informati 2016 2:37 [Mass/vol on in AM ume] in source Blood data Lymphocyt 0.7 - 4.5 K/mm3 Normal No Sep 2 es informati 2017 2:37 [#/volume on in AM ] in source Unspecifi data ed specimen by Automated count Lymphocyt 10 - 50.0 % Normal No Sep 2 es informati 2017 2:37 [#/volume on in AM ] in source Unspecifi data ed specimen by Automated count Erythrocy 27 - 31.2 pg Normal No Sep 2 te mean informati 2017 2:37 corpuscul on in AM ar source hemoglobi data n [Entitic mass] Erythrocy 31.8 - g/dl Normal No Sep 2 te mean 35.4 informati 2017 2:37 corpuscul on in AM ar source hemoglobi data n concentra tion [Mass/vol ume] by Automated count Erythrocy 82.2 - fl Normal No Sep 2 te mean 97.8 informati 2016 2:37 corpuscul on in AM ar volume source [Entitic data volume] by Automated count Monocytes 0.1 - 1.0 K/mm3 Normal No Sep 2 informati 2017 2:37 [#/volume on in AM ] in source Blood by data Automated count Monocytes 1.7 - 9.3 % Normal No Sep 2 /100 informati 2017 2:37 leukocyte on in AM s in source Blood by data Automated count Platelet 7.4 - fl Low No Sep 2 mean 10.4 informati 2017 2:37 volume on in AM [Entitic source volume] data in Blood by Automated count Platelets 142 - 424 K/mm3 Normal No Sep 2 informati 2017 2:37 [#/volume on in AM ] in source Blood data Erythrocy 4.2 - 5.4 M/mm3 Normal No Sep 2 ugo informati 2017 2:37 [#/volume on in AM ] in source Amniotic data fluid Erythrocy 11.5 - % Normal No Sep 2 te 17.5 informati 2017 2:37 distribut on in AM ion width source [Entitic data volume] by Automated count Leukocyte 4.8 - K/MM3 High No Sep 2 s 10.8 informati 2016 2:37 [#/volume on in AM ] in source Blood data INR in Blood by Coagulation assay Observa Value Referen Units Interpr Notes Date tion ce etation Range INR in 0.9 - 1.1 No High Results Jul 09 Blood by informati sent to: 2017 1:20 Coagulati on in [place] PM on assay source Cody RHODES data n 07/09/17 [id number] Derrell mendenhall Pharmacis t recommend ation for Warfarint herapy is: PATIENT INR 2.78 TODAY VIA VENIPUNCT URE INR.RECOM MENDED PATIENT CONTINUE WITH CURRENT DOSE OF WARFARIN1 0 MG DAILY AT THIS TIME. PATIENT HAS SOME BRUISING ONUPPER EXTREMITI ES FROM FALLS SHE HAS HAD OVER THE LASTCOUPL E OF DAYS. WILL RECHECK ON SUNDAY BEFORE WEEKEND ASPATIENT INDICATED SHE HAD NOT BEEN EATING OVER LAST COUPLEOF DAYS. FOR DETAILED INFORMATI ON-PLEASE REVIEW PROGRESS NOTEI N THE ASSESSMEN TS AND ANTICOAGU LATION CLINIC SECTIONAN TICOAGULA TION CLINIC IN PCI/CLINI DUSTIN REVIEWIND ICATION INR RANGETHER APY FOR DVT, PE, ATRIAL FIB; 2.0 - 3.0PROPHY LAXIS FOR VTETHERAP Y FOR MECHANICA L HEART 2.5 - 3.5VALVE; PREVENTIO N OF SYSTEMICE MBOLISM SECONDARY TO AMI INR in Blood by Coagulation assay Observa Value Referen Units Interpr Notes Date tion ce etation Range INR in 0.9 - 1.1 No High INDICATIO Jul 09 Blood by informati N 2016 1:19 Coagulati on in PM on assay source INR data RANGETHER APY FOR DVT, PE, ATRIAL FIB; 2.0 - 3.0PROPHY LAXIS FOR VTETHERAP Y FOR MECHANICA L HEART 2.5 - 3.5VALVE; PREVENTIO N OF SYSTEMICE MBOLISM SECONDARY TO AMI Prothromb 9.4 - SECONDS High No Jul 09 in time 11.8 informati 2017 1:19 (PT) in on in PM Platelet source poor data plasma by Coagulati on assay INR in Blood by Coagulation assay Observa Value Referen Units Interpr Notes Date tion ce etation Range INR in 0.9 - 1.1 No High Results Jun 29 Blood by informati sent to: 2017 1:30 Coagulati on in [place] PM on assay source Cody RHODES data n 06/29/17 [id number] Derrell mendenhall Pharmacis t recommend ation for Warfarint herapy is: PATIENT INR 3.6 TODAY VIA FINGERSTI CK.RECOMM ENDED PATIENT TAKE REDUCED DOSE TOMORROW OF 5 MG,THEN START WITH WARFARIN 10 MG DAILY BARBRA NOGUEIRA W UP NEXT WEEK. FOR DETAILED INFORMATI ON-PLEASE REVIEW PROGRESS NOTEI N THE ASSESSMEN TS AND ANTICOAGU LATION CLINIC SECTIONAN TICOAGULA TION CLINIC IN PCI/CLINI DUSTIN REVIEWIND ICATION INR RANGETHER APY FOR DVT, PE, ATRIAL FIB; 2.0 - 3.0PROPHY LAXIS FOR VTETHERAP Y FOR MECHANICA L HEART 2.5 - 3.5VALVE; PREVENTIO N OF SYSTEMICE MBOLISM SECONDARY TO AMI INR in Blood by Coagulation assay Observa Value Referen Units Interpr Notes Date ti ce etation Range IS PATIENT ON ANTICOAGULANTS? Y LIST ANTICOAGULANTS: COUMADIN PTT RESULTS MUST BE CALLED IF PT ON HEPARIN!!! Y INR in 0.9 - 1.1 No High INDICATIO Jun 02 Blood by informati N 2016 7:30 Coagulati on in PM on assay source INR data RANGETHER APY FOR DVT, PE, ATRIAL FIB; 2.0 - 3.0PROPHY LAXIS FOR VTETHERAP Y FOR MECHANICA L HEART 2.5 - 3.5VALVE; PREVENTIO N OF SYSTEMICE MBOLISM SECONDARY TO AMI Prothromb 9.4 - SECONDS High No Jun 02 in time 11.8 informati 2016 7:30 (PT) in on in PM Platelet source poor data plasma by Coagulati on assay Activated partial thrombplastin time (aPTT) in Platelet poor plasma by Coagulation assay Observa Value Referen Units Interpr Notes Date ti ce etation Range IS PATIENT ON ANTICOAGULANTS? Y LIST ANTICOAGULANTS: COUMADIN PTT RESULTS MUST BE CALLED IF PT ON HEPARIN!!! Y Activated 23.6 - SECONDS Normal No Jun 02 partial 34.0 informati 2016 7:30 thrombpla on in PM stin time source (aPTT) data in Platelet poor plasma by Coagulati on assay INR in Blood by Coagulation assay Observa Value Referen Units Interpr Notes Date tion ce etation Range IS PATIENT ON ANTICOAGULANTS? Y LIST ANTICOAGULANTS: COUMADIN PTT RESULTS MUST BE CALLED IF PT ON HEPARIN!!! Y INR in 0.9 - 1.1 No High INDICATIO Jun 02 Blood by informati N 2016 7:30 Coagulati on in PM on assay source INR data RANGETHER APY FOR DVT, PE, ATRIAL FIB; 2.0 - 3.0PROPHY LAXIS FOR VTETHERAP Y FOR MECHANICA L HEART 2.5 - 3.5VALVE; PREVENTIO N OF SYSTEMICE MBOLISM SECONDARY TO AMI Prothromb 9.4 - SECONDS High No Jun 02 in time 11.8 informati 2016 7:30 (PT) in on in PM Platelet source poor data plasma by Coagulati on assay Activated partial thrombplastin time (aPTT) in Platelet poor plasma by Coagulation assay Observa Value Referen Units Interpr Notes Date tion ce etation Range IS PATIENT ON ANTICOAGULANTS? Y LIST ANTICOAGULANTS: COUMADIN PTT RESULTS MUST BE CALLED IF PT ON HEPARIN!!! Y Activated 23.6 - SECONDS Normal No Jun 02 partial 34.0 informati 2016 7:30 thrombpla on in PM stin time source (aPTT) data in Platelet poor plasma by Coagulati on assay INR in Blood by Coagulation assay Observa Value Referen Units Interpr Notes Date ti ce etation Range INR in 0.9 - 1.1 No High Results Jun 01 Blood by informati sent to: 2017 Coagulati on in [facility] 11:35 AM on assay source Cody RHODES data n 06/01/17 [id number] Derrell mendenhall mmy Pharmacis t recommend ation for Warfarint herapy is: PATIENT INR 1.4 TODAY VIA FINGERSTI CK.RECOMM ENDED PATIENT TAKE 12 MG TODAY AND TOMORROW, THEN 10MG ON SUN/SUN/ RI; 11 MG ON SUN/SUN/ HU/SAT. FOR DETAILED INFORMATI ON-PLEASE REVIEW PROGRESS NOTEI N THE ASSESSMEN TS AND ANTICOAGU LATION CLINIC SECTIONAN TICOAGULA TION CLINIC IN PCI/CLINI DUSTIN REVIEWIND ICATION INR RANGETHER APY FOR DVT, PE, ATRIAL FIB; 2.0 - 3.0PROPHY LAXIS FOR VTETHERAP Y FOR MECHANICA L HEART 2.5 - 3.5VALVE; PREVENTIO N OF SYSTEMICE MBOLISM SECONDARY TO AMI Microalb/Creat Ratio, Randm Ur Observa Value Referen Units Interpr Notes Date ti ce etation Range Microalbu Not ug/mL No No May 04 min Estab. informati informati 2017 [Mass/vol on in on in 11:27 AM ume] in source source Urine data data Albumin/C 0.0 - No No INFCE May 04 reatinine 30.0 informati informati Result 2017 [Mass on in on in Units: 11:27 AM ratio] in source source mg/g Urine data data creatPerf ormed at: [facility] - [facility] [id number] [place], [place] [id number] [employer]ating Equipment Engineer: Ciro Nam PhD, Phone: [phone] Creatinin Not mg/dL No No May 04 e Estab. informati informati 2017 [Mass/vol on in on in 11:27 AM ume] in source source Urine data data Comprehensive metabolic 2000 panel in Serum or Plasma Observa Value Referen Units Interpr Notes Date tion ce etation Range Albumin/G 1.1 - 1.8 No Low No May 04 lobulin informati informati 2017 [Mass on in on in 11:27 AM ratio] in source source Serum or data data Plasma Albumin 3.4 - 5.0 gm/dL Normal No May 04 [Mass/vol informati 2016 ume] in on in 11:27 AM Serum or source Plasma data Alkaline 46 - 116 U/L High No May 04 phosphata informati 2016 se on in 11:27 AM [Enzymati source c data activity/ volume] in Serum or Plasma Bilirubin 0.2 - 1.0 mg/dL Normal No May 04 .total informati 2016 [Mass/vol on in 11:27 AM ume] in source Serum or data Plasma Urea 7 - 18 mg/dL High No May 04 nitrogen informati 2016 [Mass/vol on in 11:27 AM ume] in source Serum or data Plasma Calcium 8.5 - mg/dL Normal No May 04 [Mass/vol 10.1 informati 2016 ume] in on in 11:27 AM Serum or source Plasma data Chloride 98 - 107 mmoL/L Normal No May 04 [Moles/vo informati 2016 lume] in on in 11:27 AM Serum or source Plasma data Carbon 21.0 - mmoL/L Normal No May 04 dioxide, 32.0 informati 2016 total on in 11:27 AM [Moles/vo source lume] in data Serum or Plasma Creatinin 0.55 - mg/dL High No May 04 e 1.02 informati 2017 [Mass/vol on in 11:27 AM ume] in source Serum or data Plasma Estimated 59- ML/MIN Low REFERENCE May 04 RANGE: 2016 glomerula >60 11:27 AM r ML/MIN/1. filtratio 73 SQUARE n rate METERSIf (GF this patient is -A merican, then multiply theresult by 1.210. Globulin 1.3 - 3.2 gm/dL High No May 04 [Mass/vol informati 2016 ume] in on in 11:27 AM Serum source data Glucose 74 - 106 mg/dL High No May 04 [Mass/vol informati 2016 ume] in on in 11:27 AM Serum or source Plasma data Potassium 3.5 - 5.1 mmoL/L Normal No May 04 inform2016 [Moles/vo on in 11:27 AM lume] in source Serum or data Plasma Sodium 136 - 145 mmoL/L Normal No May 04 [Moles/vo informati 2016 lume] in on in 11:27 AM Serum or source Plasma data Aspartate 15 - 37 U/L Normal No May 042016 aminotran on in 11:27 AM sferase source [Enzymati data c activity/ volume] in Serum or Plasma Alanine 12 - 78 U/L Normal No May 04 aminotran 2016 sferase on in 11:27 AM [Enzymati source c data activity/ volume] in Serum or Plasma Protein 6.4 - 8.2 gm/dL Normal No May 04 [Mass/vol informati 2016 ume] in on in 11:27 AM Serum or source Plasma data Lipid 1996 panel in Serum or Plasma Observa Value Referen Units Interpr Notes Date tion ce etation Range Cholester < 200 mg/dL No No May 04 ol informati informati 2016 [Moles/vo on in on in 11:27 AM lume] in source source Unspecifi data data ed specimen Cholester 40 - 60 MG/DL Normal No May 04 ol in HDL inform2016 on in 11:27 AM [Mass/vol source ume] in data Serum or Plasma Cholester 0 - 130 mg/dL Normal No May 04 ol in LDL informati 2016 on in 11:27 AM [Mass/vol source ume] in data Serum or Plasma by calculati on Triglycer 30 - 200 mg/dL High No May 04 crow informati 2016 [Moles/vo on in 11:27 AM lume] in source Serum or data Plasma Cholester 0 - 40 No High No May 04 ol in informati inform2016 VLDL on in on in 11:27 AM [Mass/vol source source ume] in data data Serum or Plasma Thyrotropin [Units/volume] in Serum or Plasma Observa Value Referen Units Interpr Notes Date tion ce etation Range Thyrotrop 0.358 - uIU/ml No No May 04 in 3.740 inform inform2016 [Units/vo on in on in 11:27 AM lume] in source source Serum or data data Plasma CBC W Auto Differential panel in Blood Observa Value Referen Units Interpr Notes Date tion ce etation Range Basophils 0 - 0.2 K/MM3 Normal No May 042016 [#/volume on in 11:27 AM ] in source Blood by data Automated count Basophils 0.1 - 2.0 % Normal No May 04 /2016 leukocyte on in 11:27 AM s in source Blood by data Automated count Eosinophi 0.0 - 0.4 K/mm3 Normal No May 04 ls 2016 [#/volume on in 11:27 AM ] in source Blood by data Automated count Eosinophi 0.1 - % Normal No May 04 ls/100 12.0 2016 leukocyte on in 11:27 AM s in source Blood by data Automated count Granulocy 1.8 - 7.8 K/mm3 High No May 04 ugo 2016 [#/volume on in 11:27 AM ] in source Blood by data Automated count Granulocy 37.0 - % Normal No May 04 ugo/100 80.0 2016 leukocyte on in 11:27 AM s in source Blood by data Automated count Hematocri 37.0 - % Normal No May 04 t [Volume 47.0 2016 on in 11:27 AM Fraction] source of Blood data Hemoglobi 12.2 - g/dL No No May 04 n 16.2 informati inform2016 [Mass/vol on in on in 11:27 AM ume] in source source Blood data data Lymphocyt 0.7 - 4.5 K/mm3 Normal No May 04 es 2016 [#/volume on in 11:27 AM ] in source Unspecifi data ed specimen by Automated count Lymphocyt 10 - 50.0 % Normal No May 04 es 2016 [#/volume on in 11:27 AM ] in source Unspecifi data ed specimen by Automated count Erythrocy 27 - 31.2 pg Normal No May 04 te mean 2016 corpuscul on in 11:27 AM ar source hemoglobi data n [Entitic mass] Erythrocy 31.8 - g/dl Normal No May 04 te mean 35.4 2016 corpuscul on in 11:27 AM ar source hemoglobi data n concentra tion [Mass/vol ume] by Automated count Erythrocy 82.2 - fl Normal No May 04 te mean 97.8 2016 corpuscul on in 11:27 AM ar volume source [Entitic data volume] by Automated count Monocytes 0.1 - 1.0 K/mm3 Normal No May 04 inform2016 [#/volume on in 11:27 AM ] in source Blood by data Automated count Monocytes 1.7 - 9.3 % Normal No May 04 /100 2016 leukocyte on in 11:27 AM s in source Blood by data Automated count Platelet 7.4 - fl Low No May 04 mean 10.4 2016 volume on in 11:27 AM [Entitic source volume] data in Blood by Automated count Platelets 142 - 424 K/mm3 Normal No May 04 inform2016 [#/volume on in 11:27 AM ] in source Blood data Erythrocy 4.2 - 5.4 M/mm3 Normal No May 04 ugo inform2016 [#/volume on in 11:27 AM ] in source Amniotic data fluid Erythrocy 11.5 - % Normal No May 04 te 17.5 informati 2016 distribut on in 11:27 AM ion width source [Entitic data volume] by Automated count Leukocyte 4.8 - K/MM3 High No May 04 s 10.8 informati 2016 [#/volume on in 11:27 AM ] in source Blood data INR in Blood by Coagulation assay Observa Value Referen Units Interpr Notes Date tion ce etation Range INR in 0.9 - 1.1 No High INDICATIO May 04 Blood by informati N 2017 Coagulati on in 11:27 AM on assay source INR data RANGETHER APY FOR DVT, PE, ATRIAL FIB; 2.0 - 3.0PROPHY LAXIS FOR VTETHERAP Y FOR MECHANICA L HEART 2.5 - 3.5VALVE; PREVENTIO N OF SYSTEMICE MBOLISM SECONDARY TO AMI Prothromb 9.4 - SECONDS High No May 04 in time 11.8 informati 2017 (PT) in on in 11:27 AM Platelet source poor data plasma by Coagulati on assay Hemoglobin A1c in Blood Observa Value Referen Units Interpr Notes Date tion ce etation Range Hemoglo 8.1 0.0 - % High < 6% May 04 bin A1c 7.0 NON-JERMAINE 2016 in [facility] 11:27 Blood LEVEL< AM 7% CONTROL LED DIABETI C LEVEL> 8% POORLY CONTROL LED DIABETI C LEVEL INR in Blood by Coagulation assay Observa Value Referen Units Interpr Notes Date tion ce etation Range INR in 0.9 - 1.1 No High Results April 11 Blood by informati sent to: 2017 1:15 Coagulati on in [place] PM on assay source Cody RHODES data n 04/11/17 [id number] enship,Derrell mmy Pharmacis t recommend ation for Warfarint herapy is: PATIENT INR 3.2 TODAY VIA FINGERSTI CK.RECOMM ENDED PATIENT REDUCE DOSE BY 4 MG WEEKLY TO 10 MGDAILY AT THIS TIME. WILL FOLLOW UP IN 10 DAYSF OR DETAILED INFORMATI ON-PLEASE REVIEW PROGRESS NOTEI N THE ASSESSMEN TS AND ANTICOAGU LATION CLINIC SECTIONAN TICOAGULA TION CLINIC IN PCI/CLINI DUSTIN REVIEWIND ICATION INR RANGETHER APY FOR DVT, PE, ATRIAL FIB; 2.0 - 3.0PROPHY LAXIS FOR VTETHERAP Y FOR MECHANICA L HEART 2.5 - 3.5VALVE; PREVENTIO N OF SYSTEMICE MBOLISM SECONDARY TO AMI INR in Blood by Coagulation assay Observa Value Referen Units Interpr Notes Date tion ce etation Range INR in 0.9 - 1.1 No High April 06 Blood by informati NOTIFICAT 2017 1:32 Coagulati on in [place] PM on assay source RESULT data INDIC ATION INR RANGETHER APY FOR DVT, PE, ATRIAL FIB; 2.0 - 3.0PROPHY LAXIS FOR VTETHERAP Y FOR MECHANICA L HEART 2.5 - 3.5VALVE; PREVENTIO N OF SYSTEMICE MBOLISM SECONDARY TO AMI Prothromb 9.4 - SECONDS High No April 06 in time 11.8 informati 2017 1:32 (PT) in on in PM Platelet source poor data plasma by Coagulati on assay INR in Blood by Coagulation assay Observa Value Referen Units Interpr Notes Date tion ce etation Range INR in 0.9 - 1.1 No High Results April 06 Blood by informati sent to: 2016 1:10 Coagulati on in [place] PM on assay source Cody RHODES data n 04/06/17 [id number] enship,Ji mmy Pharmacis t recommend ation for Warfarint herapy is: PATIENT INR 5.1 TODAY VIA FINGERSTI CK. INR WAS4.15 TODAY VIA VENIPUNCT URE. PATIENT EATING HABITS HAVECHANG ED AFTER SURGERY AND HAS BEEN TAKING 11 MG DAILYINST EAD OF 10 MG ON SUN/SUN/ RI; 11 MG SUN/SUN/T HU/SAT.RE COMMENDED PATIENT TAKE REDUCED DOSE OF WARFARIN 5 MGSAT/SUN ; THEN RESTART ON SUN WITH 10 MG ON SUN/SUN/ RI; 11MG ON SUN/SUN/T HU/SAT. WILL FOLLOW UP ON ABIGAIL.F OR DETAILED INFORMATI ON-PLEASE REVIEW PROGRESS NOTEI N THE ASSESSMEN TS AND ANTICOAGU LATION CLINIC SECTIONAN TICOAGULA TION CLINIC IN PCI/CLINI DUSTIN REVIEWIND ICATION INR RANGETHER APY FOR DVT, PE, ATRIAL FIB; 2.0 - 3.0PROPHY LAXIS FOR VTETHERAP Y FOR MECHANICA L HEART 2.5 - 3.5VALVE; PREVENTIO N OF SYSTEMICE MBOLISM SECONDARY TO AMI
--- OUTSIDE RECORDS SUMMARY | 2017-08-23 01:44 | External Medical Summary Rpt ---
Author Author [employer], [employer] Organization [employer] Address Unknown Phone Unavailable Results INR in Blood by Coagulation assay Observa Value Referen Units Interpr Notes Date tion ce etation Range COMMENTS TO AD OPERATIONS COORDINATOR: STAT BEFORE SX IS PATIENT ON ANTICOAGULANTS? [...] informati sent to: 2017 Coagulati on in [facility] [place] 11:35 AM on assay source Cody RHODES [...] data creatPerf ormed at: CB - [facility] [id number] [place], [place] [id number] Airbrush Artist Photography: Ciro Nam PhD, Phone: [phone] Creatinin Not mg/dL No No May [...] 04 bin A1c 7.0 NON-JERMAINE 2016 in [facility] 11:27 Blood LEVEL< AM 7% CONTROL LED [...]
== END 2017-08-12 22:50 | disposition home or self-care (01) ==
LOC: ER 21:32
DX: S62.621A Displaced fracture of middle phalanx of left index finger, initial encounter for closed fracture (principal); S80.01XA Contusion of right knee, initial encounter; S33.5XXA Sprain of ligaments of lumbar spine, initial encounter; J45.909 Unspecified asthma, uncomplicated; I25.10 Atherosclerotic heart disease of native coronary artery without angina pectoris; I10 Essential (primary) hypertension; E11.9 Type 2 diabetes mellitus without complications; Z79.4 Long term (current) use of insulin; Z79.01 Long term (current) use of anticoagulants; Z88.1 Allergy status to other antibiotic agents; Z88.2 Allergy status to sulfonamides; F41.8 Other specified anxiety disorders; N28.9 Disorder of kidney and ureter, unspecified; E03.9 Hypothyroidism, unspecified; Y04.0XXA Assault by unarmed brawl or fight, initial encounter; Y92.039 Unspecified place in apartment as the place of occurrence of the external cause

== ENCOUNTER → 2017-08-14 | Outpatient (CLI) | payer MEDICARE, MEDICAID ==
[2017-08-14 12:10] LABS: LYMPH # 3.2 K/mm3 (0.7-4.5); LYMPH % 24.5 % (10-50.0)
[2017-08-14 12:21] LABS: HEMOGLOBIN 14.9 g/dL (12.2-16.2)
--- NOTE | 2017-08-14 12:35 | RADIOLOGY REPORT PS360 ---
CHEST(2 VIEWS-NOT PORTABLE) COMPARISON: PA and lateral chest 09/30/2016 HISTORY: Hypertension TECHNIQUE: PA and lateral chest FINDINGS: The lung ring are well expanded and appear clear of infiltrate. Cardiac size is normal and the vascularity is normal. There are calcified hilar nodes bilaterally. IMPRESSION: Old granulomatous disease, no acute chest pathology noted.
[2017-08-14 14:08] LABS: BUN 25 mg/dL (7-18)
[2017-08-14 14:09] LABS: GFR (ESTIMATED) 40 ML/MIN (59-)
== END ==
LOC: RAD 11:34 → LAB 11:34
PROVIDERS: Orthopaedic Surgery
DX: S62.621A Displaced fracture of middle phalanx of left index finger, initial encounter for closed fracture (principal); Z01.810 Encounter for preprocedural cardiovascular examination; Z01.811 Encounter for preprocedural respiratory examination; Z01.812 Encounter for preprocedural laboratory examination; Z79.01 Long term (current) use of anticoagulants

== ENCOUNTER 2017-08-17 07:33 | Day surgery (SDC) | payer MEDICARE, MEDICAID ==
[~2017-08-17] VITALS: Ht 162.6 cm; Wt 150.1 kg
--- NOTE | 2017-08-17 13:46 | Anesthesia Record ---
Anesthesia Record Part I Total IV fluids: 1200 EBL (ml): 10 Urine Output: 0 Units of blood given: 0 B/P: 125/50 % SaO2: 99 Pulse: 71 Resps: 10 Temp: 97.0 Patient is: Awake, Nasal O2, Stable Stable to PACU at: 1340 at 1345
--- NOTE | 2017-08-17 13:46 | Anesthesia Record ---
Anesthesia Record Part II Discharge time: 1410 Destination: Same day surgery PACU nurse assessment review? Yes Patient is: Awake, Stable Anesthesia complications? No at 1348
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
[2017-08-17 15:14] VITALS: BP 98/53
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
== END 2017-08-17 15:05 | disposition home or self-care (01) ==
LOC: SDC 07:33
PROVIDERS: Orthopaedic Surgery
PROC: 0PSV04Z Reposition Left Finger Phalanx with Internal Fixation Device, Open Approach (ICD-10-PCS; principal; 2017-08-17 09:00)
DX: S62.611A Displaced fracture of proximal phalanx of left index finger, initial encounter for closed fracture (principal); X58.XXXA Exposure to other specified factors, initial encounter
CPT/HCPCS: C1713; C1776; J2405

== ENCOUNTER 2017-08-27 12:59 | Outpatient (CLI) | payer MEDICARE, MEDICAID ==
--- NOTE | 2017-08-27 16:22 | RADIOLOGY REPORT PS360 ---
[id number] (INDEX)-3 VIEWS CLINICAL INDICATION: Follow-up fracture/ORIF POST OP FU ORDERING PHYSICIAN: ELENA WILKERSON MD PATIENT AGE: 47 years COMPARISON: None FINDINGS: Bone plate is present along the dorsal aspect of the proximal phalanx stabilizing the oblique fracture of the midshaft of the proximal phalanx. Fracture line is somewhat prominent somewhat more so what one would expect for early healing. May only be related to the mild displacement and bony resorption from hyperemia.. Clinical correlation required. IMPRESSION: There remains good alignment with slight prominence of the fracture site status post ORIF. While this may be related to healing process, other etiologies such as underlying infection cannot be excluded
== END 2017-08-27 15:02 ==
LOC: ACC 12:59
DX: Z48.89 Encounter for other specified surgical aftercare (principal); I26.99 Other pulmonary embolism without acute cor pulmonale; Z79.01 Long term (current) use of anticoagulants; Z51.81 Encounter for therapeutic drug level monitoring
CPT/HCPCS: G0463

== ENCOUNTER → 2017-09-03 | Outpatient (CLI) | payer MEDICARE, MEDICAID ==
--- NOTE | 2017-09-03 23:55 | RADIOLOGY REPORT PS360 ---
[id number] (INDEX)-3 VIEWS HISTORY: POSTOPERATIVE VISIT Patient Age: 47 years: Female Ordering Physician: ELENA WILKERSON MD TECHNIQUE: 3 views left index finger COMPARISON 08/27/2017 :. FINDINGS Cast is been removed from the study. ORIF of the oblique fracture proximal phalanx index finger. There is lack of osseous union at the oblique fracture zone. Inhomogeneous sclerosis within remaining bone both proximal & distal to this fracture line . Warrants ongoing close follow-up suggested. If Redness and swelling, This may require additional attention in follow-up..Plain films suggests a mild residual soft tissue swelling about the proximal phalanx \ IMPRESSION: ORIF proximal phalanx index finger No osseous union evident as yet with lucent fracture zone Inhomogeneous sclerotic changes on both either side of this fracture line . Mild soft tissue swelling persists proximal finger. Ongoing/Close follow-up suggested
== END ==
LOC: RAD 15:32
DX: Z48.89 Encounter for other specified surgical aftercare (principal); S62.611A Displaced fracture of proximal phalanx of left index finger, initial encounter for closed fracture

== ENCOUNTER 2017-09-20 11:25 | Outpatient (CLI) | payer MEDICARE, MEDICAID ==
--- NOTE | 2017-09-20 11:47 | RADIOLOGY REPORT PS360 ---
[id number] (INDEX)-3 VIEWS HISTORY: Follow-up fracture/ORIF. ORDERING PHYSICIAN: ELENA WILKERSON MD PATIENT AGE: 47 years COMPARISON: 09/03/2017 FINDINGS: There is a bone plate present stabilizing the comminuted fracture of the proximal phalanx of the second digit. The fracture lines are still visible suggesting nonbony union IMPRESSION: There remains good alignment with continued prominence of the fracture lines suggesting nonbony union. The overlying splint has been removed
== END 2017-09-20 13:50 ==
LOC: RAD 11:25
DX: S62.611A Displaced fracture of proximal phalanx of left index finger, initial encounter for closed fracture (principal); Z48.89 Encounter for other specified surgical aftercare; I26.99 Other pulmonary embolism without acute cor pulmonale; Z79.01 Long term (current) use of anticoagulants; Z51.81 Encounter for therapeutic drug level monitoring
CPT/HCPCS: G0463

== ENCOUNTER 2017-10-18 10:41 | Outpatient (CLI) | payer MEDICARE, MEDICAID ==
--- NOTE | 2017-10-18 14:23 | RADIOLOGY REPORT PS360 ---
[id number] (INDEX)-3 VIEWS CLINICAL INDICATION: Follow-up fracture POST OP FU ORDERING PHYSICIAN: ELENA WILKERSON MD PATIENT AGE: 47 years COMPARISON: 09/20/2017 FINDINGS: Bone plate remains in place stabilizing comminuted fracture of the proximal phalanx of the index finger. The fracture lines are still visible. There remains good alignment. IMPRESSION: Status post ORIF left proximal phalanx fracture. No evidence of bony union.
== END 2017-10-18 14:50 ==
LOC: ACC 10:41
DX: Z48.89 Encounter for other specified surgical aftercare (principal); I26.99 Other pulmonary embolism without acute cor pulmonale; Z79.01 Long term (current) use of anticoagulants; Z51.81 Encounter for therapeutic drug level monitoring
CPT/HCPCS: G0463